=== PATIENT | female | born 1975 | race Caucasian/White ===

== ENCOUNTER 2017-09-21 11:26 | Emergency (ER) | payer OTHER ==
[2017-09-21] MEDS: predniSONE 20 MG TAB PO (14:08)
[2017-09-21] MEDS: DIPHENHYDRAMINE 50 MG CAP PO (14:08)
[2017-09-21 14:20] LABS: ADD UMIC YES; UR AMORPHOUS CRYSTAL FEW /HPF (NONE SEEN); UR ASCORBIC ACID NEGATIVE (NEGATIVE); UR BACTERIA FEW /HPF (NONE SEEN); UR BILIRUBIN (Dip) NEGATIVE (NEGATIVE); UR BLOOD (Dip) NEGATIVE (NEGATIVE); UR CLARITY CLOUDY (CLEAR); UR COLOR YELLOW (YELLOW); UR GLUCOSE (Dip) NEGATIVE (NEGATIVE); UR KETONES (Dip) 1+ mg/dL (NEGATIVE); UR LEUKOCYTE ESTERASE (Dip) TRACE Leu/ul (NEGATIVE); UR NITRITE (Dip) NEGATIVE (NEGATIVE); UR RBC 3 /HPF (0-5); UR SPECIFIC GRAVITY (Dip) 1.016 (1.003-1.030); UR TOTAL PROTEIN (Dip) NEGATIVE (NEGATIVE); UR UROBILINOGEN (Dip) 1+ mg/dL (NEGATIVE); UR WBC 10 /HPF (0-5)
[2017-09-21] MEDS: FAMOTIDINE 20 MG TAB PO (15:14)
[2017-09-21] MEDS: DIPHENHYDRAMINE 50 MG INJ IM (15:14)
== END 2017-09-21 15:31 | disposition home or self-care (01) ==
LOC: FTE 11:26
DX: B37.3 Candidiasis of vulva and vagina (principal); L30.9 Dermatitis, unspecified; N39.0 Urinary tract infection, site not specified
CPT/HCPCS: 81001; 87591; 96372; 99284-25